=== PATIENT | male | born 1995 | race Caucasian/White ===

== ENCOUNTER 2017-08-22 03:58 | Emergency (ER) | payer BC ==
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
[2017-08-22] MEDS ORDERED: DIPHTH/TETANUS/ACEL. PERTUSSIS IM ONLY ONE (04:15)
[2017-08-22 06:04] VITALS: BP 111/83
== END 2017-08-22 06:06 | disposition home or self-care (01) ==
LOC: ER 04:07
DX: S01.511A Laceration without foreign body of lip, initial encounter (principal); Y04.2XXA Assault by strike against or bumped into by another person, initial encounter
CPT/HCPCS: 90471; 90715; 99284

== ENCOUNTER → 2017-08-28 | Outpatient (CLI) | payer BC | LOC: LAB 13:51 | PROVIDERS: ATTEND Internal Medicine Cardiovascular Disease | DX: I44.1 Atrioventricular block, second degree (principal) | CPT/HCPCS: 36415; 86618 ==